=== PATIENT | male | born 1990 | race Two or more races ===

== ENCOUNTER 2017-08-27 11:07 | Emergency (ER) | payer MEDICAID ==
[~2017-08-27] VITALS: Ht 180.3 cm; Wt 125.0 kg
[2017-08-27 11:10] VITALS: BP 126/74
[2017-08-27] MEDS ORDERED: DIAZEPAM 5 MG TABLET PO ONE (12:00)
[2017-08-27] MEDS ORDERED: KETOROLAC 30 MG/1 ML IM ONE (12:00)
[2017-08-27] MEDS ORDERED: DIAZEPAM 5 MG TABLET ONE (12:02)
[2017-08-27] MEDS ORDERED: KETOROLAC 30 MG/1 ML ONE (12:02)
== END 2017-08-27 12:43 | disposition home or self-care (01) ==
LOC: ED 11:49
DX: S39.012A Strain of muscle, fascia and tendon of lower back, initial encounter (principal); M51.36 Other intervertebral disc degeneration, lumbar region; X58.XXXA Exposure to other specified factors, initial encounter; Y93.89 Activity, other specified; Y99.8 Other external cause status; Y92.89 Other specified places as the place of occurrence of the external cause
CPT/HCPCS: 72110; 96372; 99284; J1885